=== PATIENT | male | born 1985 | race Caucasian/White ===

== ENCOUNTER 2022-05-14 10:05 | Emergency (ER) | payer OTHER, SELFPAY ==
[2022-05-14 10:10] VITALS: BP 118/85; PULSE 98; RESP 24; TEMP 36.5; O2SAT 97; BMI 38.9
--- NOTE | 2022-05-14 10:12 | EXP.UTC ---
Discharge Plan Disposition Patient Disposition: Home, Self-Care Condition: Good Prescriptions Prescriptions: New methylprednisolone 4 mg Tablets,Dose Pack 4 mg PO DIRECTED Qty: 21 0RF azithromycin [Zithromax] 250 mg tablet 250 mg PO UD DOSE PK Qty: 6 0RF Rx Instructions: Take two (2) tablets today, then one (1) tablet days #2 thru #5 benzonatate [benzonatate] 100 mg capsule 100 mg PO TIDP PRN (Reason: Cough) Qty: 30 0RF No Action cetirizine 10 MG capsule 10 mg PO DAILY ketorolac 10 MG tablet 10 mg PO Q6H 5 Days Qty: 10 0RF Referrals Follow up/Referrals: Provider,Referral, MD [Primary Care Provider] - See instructions Activity Restrictions/Add. Instructions Additional Instructions/Restrictions: Drink plenty of fluids. Take tylenol or ibuprofen for pain or fever. Take the medications as directed. Follow up with your regular doctor. GO TO THE ER FOR ANY WORSENING SYMPTOMS Clinical Impressions Clinical Impression: Sinusitis, Pharyngitis Stand Alone Forms Stand Alone Forms: Work/School Release Instructions Patient Instructions: Sinusitis, DI for Sinusitis Discharge ED Provider: Aneesh Lopez [facility] General Stated complaint: Loss appetite bodyaches congestion drainage Time Seen by Provider: 05/14/22 10:06 History of Present Illness Provider Complaint: He states that for the past 3 days he has had sinus congestion and a sore throat. Related Data Home Medications Medication Instructions Recorded Confirmed cetirizine 10 mg capsule 10 mg PO DAILY Allergy symptoms 04/08/19 04/08/19 Previous Rx's Medication Instructions Recorded ketorolac 10 mg tablet 10 mg PO Q6H 5 days #10 tabs 04/08/19 azithromycin 250 mg tablet 250 mg PO UD DOSE PK #6 tabs 05/14/22 (Zithromax) benzonatate 100 mg capsule 100 mg PO TIDP PRN Cough #30 caps 05/14/22 methylprednisolone 4 mg tablets in 4 mg PO DIRECTED #21 tabs 05/14/22 a dose pack Allergies Allergy/AdvReac Type Severity Reaction Status Date / Time amoxicillin [From AMOXIL] Allergy Mild VOMITING Verified 01/10/19 14:42 [facility] Disclaimer: The information contained in this section may have been updated after the patient was seen, as this information can be updated by other users. Social History Smoking Status: Current every day smoker tobacco type: cigarettes packs per day: 1 alcohol intake: never substance use type: denies use current occupational status: employed Travel in the last 8 weeks: None household members: spouse housing: house ROS Obtained: Yes All systems reviewed & no additional complaints except as documented Constitutional Constitutional: Reports chills and Reports fever(s) Eyes Eyes: Denies eye discharge ENT Ears, Nose, Mouth, and Throat: Reports as per HPI Cardiovascular Cardiovascular: Denies chest pain Respiratory Respiratory: Denies chest congestion and Reports cough Gastrointestinal Gastrointestingal: Reports nausea; Denies abdominal pain, constipation, cramping, diarrhea or vomiting Musculoskeletal Musculoskeletal: Denies arthralgias Integumentary/Breasts Skin/Breast: Denies rash Neurologic Neurologic: Denies paresthesias Physical Exam General General appearance: alert and in no apparent distress Eye Eye exam: Present normal appearance, PERRL and EOMI ENT ENT exam: Present mucous membranes moist and normal external ear exam Expanded ENT Exam External ear exam: Present normal external inspection TM/Canal exam: Bilateral TM: erythema and bulging Nose exam: Absent sinus tenderness Nasal speculum exam: Bilateral: normal Mouth exam: Present normal external inspection; Absent drooling Teeth exam: Present normal inspection Throat exam: Present tonsillar erythema and tonsillomegaly Neck Neck exam: Present normal inspection, full ROM and trachea midline; Absent tenderness, lymphadenopathy or thyromega
[2022-05-14 11:03] VITALS: BP 118/85; PULSE 98; RESP 24; TEMP 36.5; O2SAT 97
== END 2022-05-14 11:06 | disposition home or self-care (01) ==
PROVIDERS: Emergency Provider Nurse Practitioner Family
DX: J32.9 Chronic sinusitis, unspecified (principal); J02.9 Acute pharyngitis, unspecified
CPT/HCPCS: 99212; 99213; G0463

== ENCOUNTER 2023-01-15 14:33 | Emergency (ER) | payer OTHER, SELFPAY ==
[2023-01-15 14:40] VITALS: BP 184/95; PULSE 98; RESP 18; TEMP 36.8; O2SAT 95; BMI 40.8
[2023-01-15 15:06] LABS: UTC Influenza A Antigen Negative (Negative); UTC Influenza B Antigen Negative (Negative)
--- NOTE | 2023-01-15 15:22 | EXP.UTC ---
Discharge Plan Disposition Patient Disposition: Home, Self-Care Condition: Good Prescriptions Prescriptions: New azithromycin [azithromycin] 250 mg tablet 250 mg PO DIRECTED Qty: 6 0RF Rx Instructions: Take two (2) tablets on day #1, then one (1) tablet day #2 thru #5 fluticasone propionate [fluticasone propionate] 50 mcg/actuation spray,suspension 1 spray intranasal DAILY Qty: 9.9 0RF No Action cetirizine 10 MG capsule 10 mg PO DAILY Referrals Follow up/Referrals: Provider,Referral, MD [Primary Care Provider] - See instructions Activity Restrictions/Add. Instructions Additional Instructions/Restrictions: Start antibiotic patient to take as ordered for a full length of time even if you feel better. Sinus infections do not get better overnight. It may take 2-3 days to notice much improvement so be sure to use conservative measures as discussed for symptoms. Flonase 1 spray each nostril daily to help with nasal congestion, sinus and ear pressure/information Increase fluids Humidifier/vaporizer as needed Tylenol and ibuprofen as needed for fever or pain. If symptoms do not improve or get worse return or be seen in the ER Follow-up with primary care this week Clinical Impressions Clinical Impression: Sinusitis Qualifiers: Sinusitis location: maxillary Chronicity: acute Recurrence: non-recurrent Qualified Code(s): J01.00 - Acute maxillary sinusitis, unspecified Instructions Patient Instructions: DI for Sinusitis Discharge ED Provider: Blayne ([facility])Fabiano [facility] [place] General Stated complaint: congestion, h/a Mode of Arrival: Ambulatory Source of Information: Patient Limitations: No Limitations Time Seen by Provider: 01/15/23 15:22 Description of Symptoms (Recalled from Triage Doc. by RN): sore throat, sinus pain and pressure, cough, ko HEENT Symptoms (Recalled from RN notes): Yes Resp Symptoms (Recalled from RN notes): No Skin Symptoms (Recalled from RN notes): No MS Symptoms (Recalled from RN notes): No Functional Status (Recalled from RN notes): n/a History of Present Illness Provider Complaint: 37 yr old male presents for sore throat, cough, pain behind eyes,sinus pressure and sinus pain since thurs Related Data Home Medications Medication Instructions Recorded Confirmed cetirizine 10 mg capsule 10 mg PO DAILY Allergy symptoms 04/08/19 04/08/19 Previous Rx's Medication Instructions Recorded azithromycin 250 mg tablet 250 mg PO DIRECTED #6 tabs 01/15/23 fluticasone propionate 50 1 spray intranasal DAILY #9.9 mL 01/15/23 mcg/actuation nasal spray,suspension Allergies Allergy/AdvReac Type Severity Reaction Status Date / Time amoxicillin [From AMOXIL] Allergy Mild VOMITING Verified 01/15/23 14:53 Worker's Comp Is this a Worker's Comp case?: No PFSH PFS Disclaimer: The information contained in this section may have been updated after the patient was seen, as this information can be updated by other users. Social History , [employer]) Smoking Status: Current every day smoker tobacco type: cigarettes packs per day: 1 alcohol intake: never substance use type: denies use current occupational status: employed Travel in the last 8 weeks: None household members: spouse housing: house ROS Obtained: Yes All systems reviewed & no additional complaints except as documented Constitutional Constitutional: Reports system reviewed and no additional complaints, except as documented, Reports as per HPI, Reports fever(s) and Reports headache(s) Eyes Eyes: Reports system reviewed and no additional complaints, except as documented, Reports as per HPI and Reports eye pain ENT Ears, Nose, Mouth, and Throat: Reports system reviewed and no additional complaints, except as documented, Reports as per HPI, Reports headache(s), Reports nasal congestion, Reports nasal discharge, Reports post nasal drip, Reports sinus pain
[2023-01-15 15:30] VITALS: BP 184/95; PULSE 98; RESP 18; TEMP 36.8; O2SAT 95
== END 2023-01-15 15:30 | disposition home or self-care (01) ==
PROVIDERS: Emergency Provider Nurse Practitioner Family
DX: J01.00 Acute maxillary sinusitis, unspecified (principal); F17.210 Nicotine dependence, cigarettes, uncomplicated; R07.0 Pain in throat; R51.9 Headache, unspecified; R05.9 Cough, unspecified
CPT/HCPCS: 87635; 87804; 99212; 99214; G0463

== ENCOUNTER 2023-04-01 19:27 | Emergency (ER) | payer OTHER, SELFPAY ==
--- NOTE | 2023-04-01 19:32 | ED_ITS ---
Discharge Plan Disposition Patient Disposition: Home, Self-Care Condition: Good Referrals Follow up/Referrals: Maulik Brunson DO [Staff Physician] - See instructions Provider,Referral, [Primary Care Provider] - See instructions Activity Restrictions/Add. Instructions Additional Instructions/Restrictions: Official radiology report pending - wear sling until this is complete Elbow fractures are sometimes still easy to miss early on - followup if not improving Clinical Impressions Clinical Impression: Pain and swelling of right elbow Instructions Patient Instructions: DI for Elbow Pain Discharge ED Provider: Suzy Boyd [facility] [place] HPI General Stated complaint: AO [id number] @ 16:30, rt upper arm inj Time Seen by Provider: 04/01/23 19:45 History of Present Illness Provider Complaint: Patient was working a few hours ago, pulling to start a g enerator, and struck his elbow/upper arm against the cattle trailer. Pain and swelling in elbow. Feels better slightly bent and against body. Onset (ago): hour(s) (3) Location: right and upper extremity Relieving factors: immobilization Exacerbating factors: movement Treatments prior to arrival: none Related Data Allergies Allergy/AdvReac Type Severity Reaction Status Date / Time amoxicillin [From AMOXIL] Allergy Mild VOMITING Verified 01/15/23 14:[address] [facility] Disclaimer: The information contained in this section may have been updated after the patient was seen, as this information can be updated by other users. Social History , [employer]) Smoking Status: Current every day smoker tobacco type: cigarettes packs per day: 1 alcohol intake: never substance use type: denies use current occupational status: employed Travel in the last 8 weeks: None household members: spouse housing: house ROS Obtained: Yes All systems reviewed & no additional complaints except as documented Constitutional Constitutional: Reports system reviewed and no additional complaints, except as documented and Reports as per HPI Eyes Eyes: Reports system reviewed and no additional complaints, except as documented and Reports as per HPI ENT Ears, Nose, Mouth, and Throat: Reports system reviewed and no additional complaints, except as documented and Reports as per HPI Cardiovascular Cardiovascular: Reports system reviewed and no additional complaints, except as documented and Reports as per HPI Respiratory Respiratory: Reports system reviewed and no additional complaints, except as documented Gastrointestinal Gastrointestingal: Reports system reviewed and no additional complaints, except as documented Musculoskeletal Musculoskeletal: Reports as per HPI, Reports arthralgias, Reports joint swelling and Reports limited range of motion Neurologic Neurologic: Reports system reviewed and no additional complaints, except as documented Endocrine Endocrine: Reports system reviewed and no additional complaints, except as documented Allergic/Immunologic Allergic/Immunologic: Reports system reviewed and no additional complaints, except as documented Physical Exam General General appearance: alert and in no apparent distress Respiratory Respiratory exam: Present normal lung sounds bilaterally; Absent respiratory distress Cardiovascular Cardiovascular exam: Present regular rate and normal rhythm; Absent JVD Extremities Exam Extremities exam: Present normal inspection, full ROM and normal capillary refill; Absent calf tenderness Expanded Upper Extremity Exam Right: Arm exam: Present normal inspection Elbow exam: Present tenderness (olecranon process) and swelling; Absent full ROM Back Exam Back exam: Present normal inspection; Absent tenderness Neurological Exam Neurological exam: Present alert and oriented X3 Psychiatric Psychiatric exam: Present normal affect and normal mood Skin Skin exam: Present warm, dry, intact and normal color Lymphatic Lymphatic Findings: no adenopathy Medical Decision Making Christopher Inquiry Pt receiving controlled substance: No Radiology Data #1: Image(s): Humerus and Elbow Image Reviewed: Yes I reviewed the patient's radiology image Preliminary Findings: No Fracture Seen
[2023-04-01 19:40] VITALS: BP 148/90; PULSE 81; RESP 16; TEMP 36.8; O2SAT 98; BMI 39.5
--- NOTE | 2023-04-01 19:41 | XR_ITS ---
PROCEDURE INFORMATION: Exam: XR Right Humerus Exam date and time: 04/01/2023 7:37 PM Age: 37 years old Clinical indication: Injury or trauma; Other: Hit on trailer hitch; Blunt trauma (contusions or hematomas); Arm, upper; Right; Additional info: Hit it on gooseneck trailer TECHNIQUE: Imaging protocol: Radiologic exam of the right humerus. Views: 2 or more views. COMPARISON: No relevant prior studies available. FINDINGS: Bones/joints: The osseous structures appear intact with no evidence of acute fracture, dislocation, or malalignment. Joint spaces are preserved. No abnormal bone density or destructive lesions are noted. Soft tissues: Soft tissues appear unremarkable. IMPRESSION: At the time of imaging, there is no evidence for acute osseous abnormalities. Clinical correlation is advised for comprehensive assessment.
[2023-04-01 19:52] VITALS: BP 148/90; PULSE 81; RESP 16; TEMP 36.8; O2SAT 98
--- NOTE | 2023-04-01 20:05 | XR_ITS ---
PROCEDURE INFORMATION: Exam: XR Right Elbow Exam date and time: 04/01/2023 8:00 PM Age: 37 years old Clinical indication: Patient HX: Hit on hitch, right elbow pain TECHNIQUE: Imaging protocol: Radiologic exam of the right elbow. Views: 3 or more views. COMPARISON: CR Humerus R 04/01/2023 7:37 PM FINDINGS: Bones/joints: Normal. Soft tissues: Normal. IMPRESSION: No acute findings.
== END 2023-04-01 20:23 | disposition home or self-care (01) ==
PROVIDERS: Emergency Provider Physician Assistant
DX: M25.521 Pain in right elbow (principal); R22.41 Localized swelling, mass and lump, right lower limb; F17.210 Nicotine dependence, cigarettes, uncomplicated; W22.8XXA Striking against or struck by other objects, initial encounter
CPT/HCPCS: 73060; 73080; 99212; 99214; G0463

== ENCOUNTER 2023-06-29 13:47 | Emergency (ER) | payer OTHER, SELFPAY ==
[2023-06-29 14:25] VITALS: BP 121/80; PULSE 98; RESP 17; TEMP 36.7; O2SAT 98; BMI 38.5
--- NOTE | 2023-06-29 14:36 | ED_ITS ---
Discharge Plan Disposition Patient Disposition: Home, Self-Care Condition: Good Prescriptions Prescriptions: New ondansetron 4 mg tablet,disintegrating 4 mg PO Q8H PRN (Reason: nausea and vomiting) Qty: 10 0RF Referrals Follow up/Referrals: Provider,Referral, MD [Primary Care Provider] - See instructions Activity Restrictions/Add. Instructions Additional Instructions/Restrictions: *Monitor Temp, Over the counter Motrin or Tylenol as directed/as needed Tylenol every 4 hours and Motrin every 6 hours (as long as your family doctor has told you that you can take it) for fever or pain. and straight to ER if unable to lower temp less than 101.0 after medication given *Warm salt water gargles may help to soothe the throat *Throat Lozenges? *Warm fluids like tea with honey may help to soothe the throat? *Sleep elevated *Humidifier/Vaporizer Follow up IMMEDIATELY for new or worsening symptoms or no Noticeable improvement over the next 48-72 hours. 911 for difficulty breathing or swallowing Clinical Impressions Clinical Impression: Viral syndrome Stand Alone Forms Stand Alone Forms: Work/School Release Instructions Patient Instructions: DI for Viral Syndrome Discharge ED Provider: Marjan Isaacs [facility] General Stated complaint: body aches, headache, cough, loss of appetite Mode of Arrival: Ambulatory Source of Information: Patient Limitations: No Limitations Time Seen by Provider: 06/29/23 14:37 Description of Symptoms (Recalled from Triage Doc. by RN): PATIENT C/O BODY ACHES, CHILLS, AND HEADACHE SINCE TUESDAY HEENT Symptoms (Recalled from RN notes): Yes Resp Symptoms (Recalled from RN notes): No Skin Symptoms (Recalled from RN notes): No MS Symptoms (Recalled from RN notes): No Functional Status (Recalled from RN notes): WNL History of Present Illness Provider Complaint: Patient states that he started feeling bad on Tuesday with body aches, chills, fever and nausea states that he has been laying around and today he isnt feeling any better so he came in to get checked not sure if he may have something that is going around Related Data Previous Rx's Medication Instructions Recorded ondansetron 4 mg disintegrating 4 mg PO Q8H PRN nausea and 06/29/23 tablet vomiting #10 tabs Allergies Allergy/AdvReac Type Severity Reaction Status Date / Time amoxicillin [From AMOXIL] Allergy Mild VOMITING Verified 01/15/23 14:53 Penicillins Allergy Verified 06/29/23 14:34 Worker's Comp Is this a Worker's Comp case?: No [facility] Disclaimer: The information contained in this section may have been updated after the patient was seen, as this information can be updated by other users. 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[employer]) Smoking Status: Current every day smoker tobacco type: cigarettes packs per day: 1 alcohol intake: never substance use type: denies use current occupational status: employed Travel in the last 8 weeks: None household members: spouse housing: house ROS Obtained: Yes All systems reviewed & no additional complaints except as documented and Yes Systems reviewed as appropriate & no additional complaints except as documented Constitutional Constitutional: Reports system reviewed and no additional complaints, except as documented, Reports as per HPI, Reports body ache, Reports chills and Reports headache(s) ENT Ears, Nose, Mouth, and Throat: Reports system reviewed and no additional complaints, except as documented, Reports as per HPI, Reports headache(s) and Reports nasal congestion Cardiovascular Cardiovascular: Reports system reviewed and no additional complaints, except as documented and Reports as per HPI Respiratory Respiratory: Reports system reviewed and no additional complaints, except as documented and Reports as per HPI Gastrointestinal Gastrointestingal: Reports system reviewed and no additional complaints, except as documented and as per HPI Musculoskeletal Musculoskeletal: Reports system reviewed and no additional complaints, except as documented and Reports as per HPI Neurologic Neurologic: Reports headache(s) Physical Exam General General appearance: alert and in no apparent distress ENT ENT exam: Present mucous membranes moist Expanded ENT Exam Nose exam: Absent sinus tenderness Respiratory Respiratory exam: Present normal lung sounds bilaterally; Absent respiratory distress or wheezes Cardiovascular Cardiovascular exam: Present regular rate, normal rhythm and normal heart sounds Abdominal Exam Abdominal exam: Present soft and normal bowel sounds; Absent distention or tenderness Neurological Exam Neurological exam: Present alert, oriented X3 and normal gait Medical Decision Making Christopher Inquiry Pt receiving controlled substance: No Christopher was queried for this patient: No Vital Signs: 06/29/23 14:25 Temperature 98.1 F Temperature Source Oral Pulse Rate [Left Brachial] 98 H Respiratory Rate 17 Blood Pressure [Left Arm] 121/80 Blood Pressure Mean [Left Arm] 93 Blood Pressure Source [Left Arm] Automatic Cuff Blood Pressure Position [Left Arm] Sitting 02 Sat by Pulse Oximetry 98 Oxygen Delivery Method Room Air Lab Data Lab results reviewed: Yes I reviewed the patient's lab results.
[2023-06-29 14:52] LABS: UTC Influenza A Antigen Negative (Negative); UTC Influenza B Antigen Negative (Negative)
[2023-06-29 14:59] VITALS: BP 121/80; PULSE 98; RESP 17; TEMP 36.7; O2SAT 98
== END 2023-06-29 15:02 | disposition home or self-care (01) ==
PROVIDERS: Emergency Provider Nurse Practitioner
DX: R11.0 Nausea (principal); R50.9 Fever, unspecified; B34.9 Viral infection, unspecified; F17.210 Nicotine dependence, cigarettes, uncomplicated
CPT/HCPCS: 87804; 99212; 99214; G0463

== ENCOUNTER 2023-12-14 06:37 | Emergency (ER) | payer OTHER, SELFPAY ==
[2023-12-14 06:46] VITALS: BP 151/96; PULSE 84; RESP 18; TEMP 36.6; O2SAT 98; BMI 39.5
--- NOTE | 2023-12-14 06:54 | PC.NURSE ---
Harman exam performed Both 20/40 Left eye 20/40 Right eye 20/50
--- NOTE | 2023-12-14 07:06 | HMH.EDGENADL ---
Discharge Plan Disposition Patient Disposition: Home, Self-Care Prescriptions Prescriptions: No Action ondansetron 4 mg tablet,disintegrating 4 mg PO Q8H PRN (Reason: nausea and vomiting) Qty: 10 0RF Referrals Follow up/Referrals: Provider,Referral, MD [Primary Care Provider] - See instructions Activity Restrictions/Add. Instructions Additional Instructions/Restrictions: At this time it was felt you are safe to be discharged home. If new or worsening symptoms please do not hesitate to return the emergency department. Please apply your erythromycin ointment 0.5 cm strip on your inferior eyelid as shown 3 times a day for the next 5 days. Clinical Impressions Clinical Impression: Abrasion, corneal Print Language Print Language: Armenian Discharge ED Provider: Vadim Cardona General Adult HPI General Chief complaint: Eye Problems Stated complaint: swollen, redness, pain R eye Time Seen by Provider: 12/14/23 06:50 Mode of Arrival: Ambulatory Source of Information: Patient Limitations: No Limitations Description of Symptoms (Recalled from ER Triage Doc. by RN): Pt reports to ED with cc of right eye pain. Pt states waking up with right eye pain, swelling, and blurry vision. Pt also states difficulty opening eye. Pt has reddness in the right eye. Pt describes the eye as feeling stratchy. History of Present Illness HPI narrative: Patient is a 38-year-old male who presents emergency department for evaluation of right eye pain. He awoke with a red scratchy eye with limited ability to open it. Denies trauma, does not weld, no angle grinding, does not wear contacts. He does have some corrective vision with glasses in certain situations at baseline. No other acute complaints at this time. Related Data Previous Rx's ?Medication ?Instructions ?Recorded ondansetron 4 mg disintegrating 4 mg PO Q8H PRN nausea and 06/29/23 tablet vomiting #10 tabs Allergies Allergy/AdvReac Type Severity Reaction Status Date / Time amoxicillin [From AMOXIL] Allergy Mild VOMITING Verified 01/15/23 14:53 Penicillins Allergy Verified 06/29/23 14:34 [facility] Disclaimer: The information contained in this section may have been updated after the patient was seen, as this information can be updated by other users. Surgical History (Updated 06/29/23 @ 14:35 by Evelyne Maurice RN) History of tonsillectomy Social History , [employer]) Smoking Status: Never smoker alcohol intake: never substance use type: denies use current occupational status: employed Travel in the last 8 weeks: None household members: spouse housing: house Other Medical History Have you received the Flu Vaccine for this season: Yes Have you received the Pneumonia Vaccine: No ROS Obtained: Yes Systems reviewed as appropriate & no additional complaints except as documented Physical Exam General General appearance: alert and in no apparent distress Head Head exam: atraumatic and normocephalic Eye Eye exam: Present PERRL, EOMI, conjunctival redness (Diffuse conjunctival redness right greater than left) and other (No exophthalmos, no periorbital erythema) ENT ENT exam: Present mucous membranes moist Neck Neck exam: Present normal inspection Chest Chest inspection: Present normal inspection and symmetric chest wall rise Respiratory Respiratory exam: Absent respiratory distress Cardiovascular Cardiovascular exam: Present regular rate and normal rhythm Extremities Exam Extremities exam: Present normal inspection Neurological Exam Neurological exam: Present alert and CN II-XII intact Psychiatric Psychiatric exam: Present normal affect Skin Skin exam: Present warm and dry Medical Decision Making Medical Records Screening: Per USPSTF and CDC recommendations, given the prevalence of disease in our region, it is our hospital?s policy to screen for HIV and viral Hepatitis for all patients aged 18 and over and those with ongoing risk factors. Christopher Inquiry Pt receiving controlled substance: No Vital Signs: 12/14/23 06:46 Temperature 97.9 F Temperature Source Oral Pulse Rate [Left Radial] 84 Respiratory Rate 18 Blood Pressure [Right Arm] 151/96 H Blood Pressure Mean [Right Arm] 114 Blood Pressure Source [Right Arm] Automatic Cuff Blood Pressure Position [Right Arm] Sitting 02 Sat by Pulse Oximetry 98 Oxygen Delivery Method Room Air Medical Decision Narrative: In summary patient is a 38-year-old male past medical history described above presents emergency department for evaluation of right eye pain. Patient is hemodynamically stable nontoxic-appearing upon arrival. He lamp exam shows corneal abrasion that is punctate, Annamarie sign negative, no foreign body identified. Erythromycin ointment was instilled into the right eye and patient is appropriate for outpatient management at this time was given multiple return precautions verbalized understanding. Procedure: Procedure performed was Will's exam. Procedure performed by Vadim Cardona. Topical tetracaine was applied to the right eye with partial effect. He lamp was used and identified punctate corneal abrasion. Erythromycin ointment was instilled into the inferior lid. No other fluorescein uptake, no foreign body identified. Patient tolerated the procedure well. Critical Care Critical Care Time Critical Care Time: No
[2023-12-14] MEDS: TETRACAINE 0.5% OPTH SOL 15ML OP (07:12)
[2023-12-14] MEDS: FLUORESCEIN SODIUM 1MG STRIP 1 MG OP (07:12)
[2023-12-14] MEDS: ERYTHROMYCIN BASE 1 GM OINT...G. 0.5 GM OP (07:13)
[2023-12-14 07:17] VITALS: BP 159/94; PULSE 97; RESP 18; TEMP 36.7; O2SAT 98
== END 2023-12-14 07:18 | disposition home or self-care (01) ==
PROVIDERS: Emergency Provider Emergency Medicine
DX: S05.00XA Injury of conjunctiva and corneal abrasion without foreign body, unspecified eye, initial encounter (principal); X58.XXXA Exposure to other specified factors, initial encounter
CPT/HCPCS: 99283

== ENCOUNTER 2024-05-11 18:58 | Emergency (ER) | payer OTHER, SELFPAY ==
[2024-05-11 19:06] VITALS: BP 131/83; PULSE 93; RESP 18; TEMP 36.8; O2SAT 99; BMI 27.7
[2024-05-11 19:14] LABS: Coronavirus 19, PCR Not Detected (NotDetected); Influenza B, PCR Not Detected (NotDetected)
[2024-05-11 19:17] VITALS: RESP 18; O2SAT 98
[2024-05-11 19:38] LABS: Influenza A, PCR Detected (NotDetected)
--- NOTE | 2024-05-11 19:39 | XR_ITS ---
PROCEDURE INFORMATION: Exam: XR Chest Exam date and time: 05/11/2024 7:53 PM Age: 38 years old Clinical indication: Wheezing; Additional info: Lll wheezing posteriorly TECHNIQUE: Imaging protocol: Radiologic exam of the chest. Views: 1 view. COMPARISON: CR XR HUMERUS RT 04/01/2023 7:37 PM FINDINGS: Lungs: Unremarkable. No consolidation. Pleural spaces: Unremarkable. No pleural effusion. No pneumothorax. Heart/Mediastinum: Unremarkable. No cardiomegaly. Bones/joints: Unremarkable. IMPRESSION: No acute findings.
--- NOTE | 2024-05-11 19:41 | ED_ITS ---
Discharge Plan Disposition Patient Disposition: Home, Self-Care Chief Complaint: Upper Respiratory Infection Prescriptions Prescriptions: No Action No Known Home Medications Referrals Follow up/Referrals: Provider,Referral, MD [Primary Care Provider] - See instructions Activity Restrictions/Add. Instructions Additional Instructions/Restrictions: Call your family doctor to establish care for this visit to the emergency department and schedule follow-up within 48 hours to ensure improvement. If you have any worsening of your condition or any other concerning signs or symptoms, return to the emergency department or your primary care doctor for further evaluation. Take Tylenol 1000 mg every 6 hours (4 times daily) and ibuprofen 400 mg every 6 hours (4 times daily) as needed with food and water to prevent GI upset and kidney damage. Clinical Impressions Clinical Impression: Influenza A Print Language Print Language: [place] Discharge ED Provider: Wojciech Pepe General Adult HPI General Chief complaint: Upper Respiratory Infection Stated complaint: cough, vomiting, weak, diane Time Seen by Provider: 05/11/24 19:14 Mode of Arrival: Ambulatory Source of Information: Patient Limitations: No Limitations Description of Symptoms (Recalled from ER Triage Doc. by RN): Pt presents for evaluation of congestion, fever, cough and fatigue x 2 days. highest temp at home was 100 something . Pt states he took ibuprofen at 1400 today. History of Present Illness HPI narrative: Please note that above description of symptoms, in this electronic medical record under categorization of recalled from ER triage doctor by RN are reflective of an initial nursing assessment, however, is not reflective of my full history and physical exam that was personally taken and clarified. Consequentially, this preceding description of symptoms, which may include the patient's categorized chief complaint in the EMR, do not reflect my personal clinical impression, and the ultimate description of history of present illness and patient stated complaints should be deferred to this section of the note. Unless stated otherwise or congruent with this section of the note, additional signs, symptoms, or incongruence should be interpreted as inaccurate with my clinical impression. Related Data Home Medications ?Medication ?Instructions ?Recorded ?Confirmed No Known Home Medications 05/11/24 05/11/24 Allergies Allergy/AdvReac Type Severity Reaction Status Date / Time amoxicillin (From AMOXIL) Allergy Mild VOMITING Verified 01/15/23 14:53 Penicillins Allergy Vomiting Verified 05/11/24 19:09 [facility] Disclaimer: The information contained in this section may have been updated after the patient was seen, as this information can be updated by other users. Surgical History History of tonsillectomy Social History Smoking Status: Former smoker tobacco type: cigarettes packs per day: 1 alcohol intake: never substance use type: denies use current occupational status: employed Travel in the last 8 weeks: None household members: spouse housing: house Have you lived/traveled outside [place] in past 30 days?: No Contact w/someone who lives/traveled outside [place] past 30 days?: No Exposure to someone with infectious disease in past 14 days?: No Do you have a fever (greater than 100.4 F or 38 C)?: No Have you tested positive for COVID-19: No Exposed to someone with COVID-19 in past 14 days?: No Do you have a sore throat?: No Do you have a cough?: No Do you have any weakness?: No Do you have any diarrhea?: No Are you experiencing any unusual bleeding?: No Do you have any muscle aches/pain?: No Do you have any abdominal pain?: No Are you experiencing loss of taste or smell?: No Other Medical History Have you received the Flu Vaccine for this season: Yes Have you received the Pneumonia Vaccine: No ROS Obtained: Yes All systems reviewed & no additional complaints except as documented Physical Exam General General appearance: alert Head Head exam: atraumatic and normocephalic Eye Eye exam: Present normal appearance, PERRL and EOMI Neck Neck exam: Present normal inspection, full ROM and trachea midline Respiratory Respiratory exam: Present other (Left lower lung field rhonchi posteriorly); Absent respiratory distress, wheezes, stridor, accessory muscle use or prolonged expiratory phase Cardiovascular Cardiovascular exam: Present other (Pulses equal symmetric in upper and lower extremities) Abdominal Exam Abdominal exam: Present soft; Absent distention, tenderness or pulsatile mass Extremities Exam Extremities exam: Absent edema Neurological Exam Neurological exam: Present alert, oriented X3 and CN II-XII intact; Absent motor sensory deficit Skin Skin exam: Present warm and dry; Absent diaphoresis or erythema Medical Decision Making Medical Records Medical records reviewed: Yes I reviewed the patient's medical records. Screening: Per USPSTF and CDC recommendations, given the prevalence of disease in our region, it is our hospital?s policy to screen for HIV and viral Hepatitis for all patients aged 18 and over and those with ongoing risk factors. Christopher Inquiry Pt receiving controlled substance: No Christopher was queried for this patient: No Vital Signs: 05/11/24 19:06 05/11/24 19:17 Temperature 98.3 F Temperature Source Oral Pulse Rate [Right] 93 H Respiratory Rate 18 18 Blood Pressure [Right Arm] 131/83 Blood Pressure Mean [Right Arm] 99 Blood Pressure Source [Right Arm] Automatic Cuff Blood Pressure Position [Right Arm] Sitting 02 Sat by Pulse Oximetry 99 98 Oxygen Delivery Method Room Air Room Air Lab Data Lab Results 05/11/24 19:06: SARS-CoV-2 (PCR) Not detected, Influenza A Untype (PCR) Detected A, Influenza Type B (PCR) Not detected Orders (Tests/Meds): ED MEDICATIONS Discontinued Medications Generic Name Dose Route Start Last Admin Trade Name Freq PRN Reason Stop Dose Admin Dexamethasone 10 mg 05/11/24 19:39 05/11/24 19:44 Dexamethasone 4mg Tablet PO 05/11/24 19:40 10 mg ONCE ONE Administration ORDERS Category Date Time Status CXR --portable [XR chest portable] Stat Exams 05/11/24 19:39 Completed Rapid PCR Covid and Flu A/B Stat Lab 05/11/24 19:06 Completed Medical Decision Narrative: 38-year-old male no relevant medical history presenting with cough, generalized weakness, congestion. States this has been going on 2 or 3 days getting worse. Cough is productive of thick white sputum. Intermittent vomiting, soft stools, but no overt diarrhea. Fever just before arrival of just over 100. History obtained with patient. On arrival, very clinically well-appearing. Normotensive, nontachycardic. Lungs are clear with the exception of rhonchi and left lower lung zaldivar posteriorly. Viral swab obtained, chest x-ray to be obtained. On independent interpretation, patient influenza positive. Independent interpretation of imaging demonstrates no acute cardiopulmonary or airspace disease. Because patient at baseline without signs or symptoms of c linical decompensation, deemed appropriate for discharge. Results were relayed to patient who voiced understanding and were agreeable to outpatient management and follow up. I discussed my clinical impression with patient and answered all questions. At this time, the evidence for any other entities in the differential is insufficient to warrant any further testing or ED observation. This was explained as well. Advisory was given that persistent or worsening symptoms require further evaluation. I confirmed the understanding of this discussion. Director Dance disclaimer Much of this encounter note is an electronic container shop welder spoken language to printed text. Electronic container shop welder of the spoken language may permit errors. Although I have reviewed the note, some errors may still exist. Critical Care Critical Care Time Critical Care Time: No
[2024-05-11] MEDS: DEXAMETHASONE 4MG TABLET 10 MG PO (19:44)
[2024-05-11 21:07] VITALS: BP 128/78; PULSE 88; RESP 18; TEMP 36.8; O2SAT 98
== END 2024-05-11 21:07 | disposition home or self-care (01) ==
PROVIDERS: Emergency Provider Emergency Medicine
DX: J10.1 Influenza due to other identified influenza virus with other respiratory manifestations (principal); R50.9 Fever, unspecified; R09.81 Nasal congestion; R05.9 Cough, unspecified; R53.83 Other fatigue; F17.210 Nicotine dependence, cigarettes, uncomplicated
CPT/HCPCS: 71045; 87636; 99283; J8540

== ENCOUNTER 2024-05-17 19:57 | Emergency (ER) | payer OTHER, SELFPAY ==
[2024-05-17] VITALS (9 sets, daily range): BP systolic 122–154; BP diastolic 69–99; PULSE 74–97; RESP 14–22; TEMP 36.6–37.2; O2SAT 94–97; BMI 40.8
--- NOTE | 2024-05-17 19:56 | ECG_ITS ---
APPROVED REPORT Exam: Resting ECG HR:97 bpm ECG Measurements Heart Rate 97 AXES CO 143 P 73 QRSd 97 QRS 72 QT 322 T 40 QTc 376 Conclusion SINUS RHYTHM NORMAL ECG INTERPRETATION BASED ON A DEFAULT AGE OF 42 YEARS UNCONFIRMED REPORT Electronically signed by : EZEQUIEL HAIRSTON, 05/18/2024 05:30:24
--- NOTE | 2024-05-17 20:07 | ED_ITS ---
Discharge Plan Disposition Patient Disposition: Home, Self-Care Prescriptions Prescriptions: New doxycycline hyclate 100 mg capsule 100 mg PO BID 5 Days Qty: 10 0RF Referrals Follow up/Referrals: Provider,Referral, MD [Primary Care Provider] - See instructions Activity Restrictions/Add. Instructions Additional Instructions/Restrictions: Call your family doctor to establish care for this visit to the emergency department and schedule follow-up within 48 hours to ensure improvement. If you have any worsening of your condition or any other concerning signs or symptoms, return to the emergency department or your primary care doctor for further evaluation. Doxycycline twice daily for 5 days Clinical Impressions Clinical Impression: Left lower lobe pneumonia Qualifiers: Pneumonia type: due to unspecified organism Qualified Code(s): J18.9 - Pneumonia, unspecified organism Print Language Print Language: [place] Discharge ED Provider: Ray Gambino Adult HPI <TC Ruano - Last Filed: 05/17/24 21:55> General Chief complaint: Chest Pain Stated complaint: Chest pain Time Seen by Provider: 05/17/24 20:07 Mode of Arrival: Ambulatory Source of Information: Patient Description of Symptoms (Recalled from ER Triage Doc. by RN): Pt presents with left shoulder/chest pain that began approx 2 hours ago. No known cardiac history History of Present Illness HPI narrative: Patient presents for evaluation of chest pain. Patient reports that he had just gotten home and was trying to locate a dog that had gotten loose. He was able to do so and noticed that he was starting having left chest pain that was radiating down his left arm. He also reports paresthesias associated with it. He denies any fever chills hemoptysis hematochezia melena hematemesis but does report that he recently had the flu approximately 2 weeks ago. Related Data Previous Rx's ?Medication ?Instructions ?Recorded doxycycline hyclate 100 mg capsule 100 mg PO BID 5 days #10 caps 05/17/24 Allergies Allergy/AdvReac Type Severity Reaction Status Date / Time amoxicillin (From AMOXIL) Allergy Mild VOMITING Verified 01/15/23 14:53 Penicillins Allergy Vomiting Verified 05/11/24 19:09 PFSH <TC Ruano - Last Filed: 05/17/24 21:55> [facility] Disclaimer: The information contained in this section may have been updated after the patient was seen, as this information can be updated by other users. Surgical History History of tonsillectomy Social History Smoking Status: Former smoker tobacco type: cigarettes packs per day: 1 alcohol intake: never substance use type: denies use current occupational status: employed Travel in the last 8 weeks: None household members: spouse housing: house Have you lived/traveled outside [place] in past 30 days?: No Contact w/someone who lives/traveled outside US past 30 days?: No Exposure to someone with infectious disease in past 14 days?: No Do you have a fever (greater than 100.4 F or 38 C)?: No Have you tested positive for COVID-19: No Exposed to someone with COVID-19 in past 14 days?: No Do you have a sore throat?: No Do you have a cough?: No Do you have any weakness?: No Do you have any diarrhea?: No Are you experiencing any unusual bleeding?: No Do you have any muscle aches/pain?: No Do you have any abdominal pain?: No Are you experiencing loss of taste or smell?: No Other Medical History Have you received the Flu Vaccine for this season: Yes Have you received the Pneumonia Vaccine: No <TC Ruano - Last Filed: 05/17/24 21:55> ROS Obtained: Yes Systems reviewed as appropriate & no additional complaints except as documented Physical Exam <TC Ruano - Last Filed: 05/17/24 21:55> General General appearance: alert and in no apparent distress Respiratory Respiratory exam: Present normal lung sounds bilaterally Cardiovascular Cardiovascular exam: Present regular rate Neurological Exam Neurological exam: Present alert and oriented X3 Medical Decision Making <TC Ruano - Last Filed: 05/17/24 21:55> Medical Records Medical records reviewed: Yes I reviewed the patient's medical records. Screening: Per USPSTF and CDC recommendations, given the prevalence of disease in our region, it is our hospital?s policy to screen for HIV and viral Hepatitis for all patients aged 18 and over and those with ongoing risk factors. Christopher Inquiry Pt receiving controlled substance: No Vital Signs: 05/17/24 20:00 05/17/24 20:04 05/17/24 20:30 Temperature 99 F Temperature Source Oral Pulse Rate 95 H 90 Pulse Rate [Radial] 97 H Respiratory Rate 18 22 19 Blood Pressure 146/83 H 132/79 Blood Pressure [Right Arm] 154/99 H Blood Pressure Mean [Right Arm] 117 Blood Pressure Position [Right Arm] Sitting 02 Sat by Pulse Oximetry 95 97 95 Oxygen Delivery Method Room Air Room Air 05/17/24 21:01 05/17/24 21:30 05/17/24 22:00 Temperature Temperature Source Pulse Rate 91 H 85 86 Pulse Rate [Radial] Respiratory Rate 17 Blood Pressure 122/69 131/77 142/91 H Blood Pressure [Right Arm] Blood Pressure Mean [Right Arm] Blood Pressure Position [Right Arm] 02 Sat by Pulse Oximetry 96 95 95 Oxygen Delivery Method Room Air Room Air 05/17/24 22:31 05/17/24 23:01 Temperature Temperature Source Pulse Rate 84 83 Pulse Rate [Radial] Respiratory Rate 14 Blood Pressure 129/79 133/72 Blood Pressure [Right Arm] Blood Pressure Mean [Right Arm] Blood Pressure Position [Right Arm] 02 Sat by Pulse Oximetry 96 96 Oxygen Delivery Method Room Air Room Air Lab Data Lab results reviewed: Yes I reviewed the patient's lab results. Lab Results 05/17/24 19:50: WBC 14.6 H, RBC 4.58 L, Hgb 14.1, Hct 41.5 L, MCV 90.6, MCH 30.8, MCHC 34.0, RDW 12.7, Plt Count 418, MPV 8.9, Neut % (Auto) 62.6, Lymph % (Auto) 25.9, [place] % (Auto) 8.3, Eos % (Auto) 2.3, Baso % (Auto) 0.3, Neut # (Auto) 9.1 H, Lymph # (Auto) 3.8, [place] # (Auto) 1.2 H, Eos # (Auto) 0.3, Baso # (Auto) 0.1, PT 9.6, INR 0.86 L, D-Dimer 0.32, Sodium 138, Potassium 3.9, Chloride 103, Carbon Dioxide 31 H, Anion Gap 7.9, BUN 13, Creatinine 1.00, Estimated Creat Clear 203, Estimated GFR 85, Est GFR ( Amer) 102, Glucose 111 H, Calcium 9.3, Total Bilirubin 0.4, AST 34, ALT 42, Alkaline Phosphatase 56, Troponin I < 0.01, NT-Pro-B Natriuret Pep < 20.0, Total Protein 7.7, Albumin 4.6, Globulin 3.1, Albumin/Globulin Ratio 1.5, Procalcitonin 0.049 05/17/24 22:25: Troponin I < 0.01 05/17/24 19:50 05/17/24 19:50 Orders (Tests/Meds): ED MEDICATIONS Discontinued Medications Generic Name Dose Route Start Last Admin Trade Name Ayoq PRN Reason Stop Dose Admin Acetaminophen 1,000 mg 05/17/24 20:07 05/17/24 20:24 Acetaminophen 1,000mg/100ml Vial IV 05/17/24 20:08 1,000 mg ONCE ONE Administration Doxycycline Hyclate 100 mg 05/17/24 22:11 05/17/24 22:28 Doxycycline Hycl 100 Mg Tablet PO 05/17/24 22:12 100 mg ONCE ONE Administration Sodium Chloride 1,000 mls @ 999 mls/hr 05/17/24 20:07 05/17/24 20:24 Sod Chlor 0.9% 1000ml Bag IV 05/17/24 21:07 999 mls/hr .Q1H1M ONE Administration Ketorolac Tromethamine 15 mg 05/17/24 20:07 05/17/24 20:24 Ketorolac 30mg/Ml Vial IV 05/17/24 20:08 15 mg ONCE ONE Administration ORDERS Category Date Time Status Chest XR 2 view (NOT portable) [XR chest 2V] Stat Exams 05/17/24 20:08 Taken BNP [NT Pro Brain Natriuretic Pep.] Stat Lab 05/17/24 19:50 Completed CBC w/Auto Diff [Complete Blood Count Auto Diff] Stat Lab 05/17/24 19:50 Completed CMP [Comprehensive Metabolic Panel] Stat Lab 05/17/24 19:50 Completed D-Dimer Stat Lab 05/17/24 19:50 Completed INR [Prothrombin Time INR] Stat Lab 05/17/24 19:50 Completed Procalcitonin Stat Lab 05/17/24 19:50 Completed Trop I [Troponin I] Stat Lab 05/17/24 19:50 Completed Troponin I Q3H Lab 05/17/24 22:25 Completed Troponin I Q3H Lab 05/18/24 02:15 Ordered HEART Score History (anamnesis): Slightly suspicious ECG: Non-specific disturbance Age: <45 years Risk factors: 3 or more risk factors Troponin: </= normal limit HEART Score: 3 Medical Decision Narrative: In summary patient is a 38-year-old male who presents to the emergency department for evaluation of chest pain with left arm radiation. Patient is hemodynamically stable with a blood pressure 159/99 heart rate 97 sinus rhythm on the bedside monitor breathing 22 times a minute satting at 97% on room air upon arrival, with a temperature of 99. Physical exam is remarkable for clear breath sounds with no increased work of breathing or adventitious sounds, heart sounds S1-S2 regular rate and rhythm without murmurs gallops or thrills. Abdomen is soft nontender no rebound or guarding or rigidity. Bowel sounds normal active. No dependent edema noted.. Differential diagnosis includes ACS versus PE versus pneumonia versus gastroenteritis etc. Initial workup will be conducted with hematologic labs D-dimer plain film chest x-ray twelve-lead EKG.. Initial interventions include crystalloid bolus Toradol Tylenol GI cocktail. Initial workup reviewed by me and his hematologic labs are significant for a white count of 14.6 with an absolute neutrophil count of 9.1 D-dimer 0.32 troponin of less than 0.01 and NT proBNP of less than 20. Given this has been having chest pain continuously for only an hour and a half the patient was placed in observation status at 2100 hrs. Medical necessity for observational status is serial troponins. The patient was provided serial reevaluations continuous cardiac monitoring and pulse oximetry while awaiting results. Patient handed off to Dr. Pepe at 2200 hrs. before second troponin done. Total time in observation was [total time]. <Wojciech Pepe MD - Last Filed: 05/17/24 23:17> Vital Signs: 05/17/24 20:00 05/17/24 20:04 05/17/24 20:30 Temperature 99 F Temperature Source Oral Pulse Rate 95 H 90 Pulse Rate [Radial] 97 H Respiratory Rate 18 22 19 Blood Pressure 146/83 H 132/79 Blood Pressure [Right Arm] 154/99 H Blood Pressure Mean [Right Arm] 117 Blood Pressure Position [Right Arm] Sitting 02 Sat by Pulse Oximetry 95 97 95 Oxygen Delivery Method Room Air Room Air 05/17/24 21:01 05/17/24 21:30 05/17/24 22:00 Temperature Temperature Source Pulse Rate 91 H 85 86 Pulse Rate [Radial] Respiratory Rate 17 Blood Pressure 122/69 131/77 142/91 H Blood Pressure [Right Arm] Blood Pressure Mean [Right Arm] Blood Pressure Position [Right Arm] 02 Sat by Pulse Oximetry 96 95 95 Oxygen Delivery Method Room Air Room Air 05/17/24 22:31 05/17/24 23:01 Temperature Temperature Source Pulse Rate 84 83 Pulse Rate [Radial] Respiratory Rate 14 Blood Pressure 129/79 133/72 Blood Pressure [Right Arm] Blood Pressure Mean [Right Arm] Blood Pressure Position [Right Arm] 02 Sat by Pulse Oximetry 96 96 Oxygen Delivery Method Room Air Room Air Lab Data Lab Results 05/17/24 19:50: WBC 14.6 H, RBC 4.58 L, Hgb 14.1, Hct 41.5 L, MCV 90.6, MCH 30.8, MCHC 34.0, RDW 12.7, Plt Count 418, MPV 8.9, Neut % (Auto) 62.6, Lymph % (Auto) 25.9, [place] % (Auto) 8.3, Eos % (Auto) 2.3, Baso % (Auto) 0.3, Neut # (Auto) 9.1 H, Lymph # (Auto) 3.8, [place] # (Auto) 1.2 H, Eos # (Auto) 0.3, Baso # (Auto) 0.1, PT 9.6, INR 0.86 L, D-Dimer 0.32, Sodium 138, Potassium 3.9, Chloride 103, Carbon Dioxide 31 H, Anion Gap 7.9, BUN 13, Creatinine 1.00, Estimated Creat Clear 203, Estimated GFR 85, Est GFR ( Amer) 102, Glucose 111 H, Calcium 9.3, Total Bilirubin 0.4, AST 34, ALT 42, Alkaline Phosphatase 56, Troponin I < 0.01, NT-Pro-B Natriuret Pep < 20.0, Total Protein 7.7, Albumin 4.6, Globulin 3.1, Albumin/Globulin Ratio 1.5, Procalcitonin 0.049 05/17/24 22:25: Troponin I < 0.01 Orders (Tests/Meds): ED MEDICATIONS Discontinued Medications Generic Name Dose Route Start Last Admin Trade Name Freq PRN Reason Stop Dose Admin Acetaminophen 1,000 mg 05/17/24 20:07 05/17/24 20:24 Acetaminophen 1,000mg/100ml Vial IV 05/17/24 20:08 1,000 mg ONCE ONE Administration Doxycycline Hyclate 100 mg 05/17/24 22:11 05/17/24 22:28 Doxycycline Hycl 100 Mg Tablet PO 05/17/24 22:12 100 mg ONCE ONE Administration Sodium Chloride 1,000 mls @ 999 mls/hr 05/17/24 20:07 05/17/24 20:24 Sod Chlor 0.9% 1000ml Bag IV 05/17/24 21:07 999 mls/hr .Q1H1M ONE Administration Ketorolac Tromethamine 15 mg 05/17/24 20:07 05/17/24 20:24 Ketorolac 30mg/Ml Vial IV 05/17/24 20:08 15 mg ONCE ONE Administration ORDERS Category Date Time Status Chest XR 2 view (NOT portable) [XR chest 2V] Stat Exams 05/17/24 20:08 Taken BNP [NT Pro Brain Natriuretic Pep.] Stat Lab 05/17/24 19:50 Completed CBC w/Auto Diff [Complete Blood Count Auto Diff] Stat Lab 05/17/24 19:50 Completed CMP [Comprehensive Metabolic Panel] Stat Lab 05/17/24 19:50 Completed D-Dimer Stat Lab 05/17/24 19:50 Completed INR [Prothrombin Time INR] Stat Lab 05/17/24 19:50 Completed Procalcitonin Stat Lab 05/17/24 19:50 Completed Trop I [Troponin I] Stat Lab 05/17/24 19:50 Completed Troponin I Q3H Lab 05/17/24 22:25 Completed Troponin I Q3H Lab 05/18/24 02:15 Ordered ECG Data Tracing #1: I reviewed this ECG and interpreted as documented below: (Sinus rhythm 97 beats per minute with VA interval 143, QRS 97, QTc 376. Normal axis) HEART Score HEART Score: 3 Medical Decision Narrative: In summary patient is a 38-year-old male who presents to the emergency department for evaluation of chest pain with left arm radiation. Patient is hemodynamically stable with a blood pressure 159/99 heart rate 97 sinus rhythm on the bedside monitor breathing 22 times a minute satting at 97% on room air upon arrival, with a temperature of 99. Physical exam is remarkable for clear breath sounds with no increased work of breathing or adventitious sounds, heart sounds S1-S2 regular rate and rhythm without murmurs gallops or thrills. Abdomen is soft nontender no rebound or guarding or rigidity. Bowel sounds normal active. No dependent edema noted.. Differential diagnosis includes ACS versus PE versus pneumonia versus gastroenteritis etc. Initial workup will be conducted with hematologic labs D-dimer plain film chest x-ray twelve-lead EKG.. Initial interventions include crystalloid bolus Toradol Tylenol GI cocktail. Initial workup reviewed by me and his hematologic labs are significant for a white count of 14.6 with an absolute neutrophil count of 9.1 D-dimer 0.32 troponin of less than 0.01 and NT proBNP of less than 20. Given this has been having chest pain continuously for only an hour and a half the patient was placed in observation status at 2100 hrs. Medical necessity for observational status is serial troponins. The patient was provided serial reevaluations continuous cardiac monitoring and pulse oximetry while awaiting results. Patient handed off to Dr. Pepe at 2200 hrs. before second troponin done. My: I assumed primary responsibility for this patient after signout from RASHEED. Patient stable, mild leukocytosis nonactionable chemistry and negative initial troponin/BNP. Chest x-ray with infiltrate consistent with early pneumonia. Given doxycycline. Prior to delta troponin, care handed off to oncoming physician <Ray Gambino MD - Last Filed: 05/17/24 23:38> Vital Signs: 05/17/24 20:00 05/17/24 20:04 05/17/24 20:30 Temperature 99 F Temperature Source Oral Pulse Rate 95 H 90 Pulse Rate [Radial] 97 H Respiratory Rate 18 22 19 Blood Pressure 146/83 H 132/79 Blood Pressure [Right Arm] 154/99 H Blood Pressure Mean [Right Arm] 117 Blood Pressure Position [Right Arm] Sitting 02 Sat by Pulse Oximetry 95 97 95 Oxygen Delivery Method Room Air Room Air 05/17/24 21:01 05/17/24 21:30 05/17/24 22:00 Temperature Temperature Source Pulse Rate 91 H 85 86 Pulse Rate [Radial] Respiratory Rate 17 Blood Pressure 122/69 131/77 142/91 H Blood Pressure [Right Arm] Blood Pressure Mean [Right Arm] Blood Pressure Position [Right Arm] 02 Sat by Pulse Oximetry 96 95 95 Oxygen Delivery Method Room Air Room Air 05/17/24 22:31 05/17/24 23:01 Temperature Temperature Source Pulse Rate 84 83 Pulse Rate [Radial] Respiratory Rate 14 Blood Pressure 129/79 133/72 Blood Pressure [Right Arm] Blood Pressure Mean [Right Arm] Blood Pressure Position [Right Arm] 02 Sat by Pulse Oximetry 96 96 Oxygen Delivery Method Room Air Room Air Lab Data Lab Results 05/17/24 19:50: WBC 14.6 H, RBC 4.58 L, Hgb 14.1, Hct 41.5 L, MCV 90.6, MCH 30.8, MCHC 34.0, RDW 12.7, Plt Count 418, MPV 8.9, Neut % (Auto) 62.6, Lymph % (Auto) 25.9, [place] % (Auto) 8.3, Eos % (Auto) 2.3, Baso % (Auto) 0.3, Neut # (Auto) 9.1 H, Lymph # (Auto) 3.8, [place] # (Auto) 1.2 H, Eos # (Auto) 0.3, Baso # (Auto) 0.1, PT 9.6, INR 0.86 L, D-Dimer 0.32, Sodium 138, Potassium 3.9, Chloride 103, Carbon Dioxide 31 H, Anion Gap 7.9, BUN 13, Creatinine 1.00, Estimated Creat Clear 203, Estimated GFR 85, Est GFR ( Amer) 102, Glucose 111 H, Calcium 9.3, Total Bilirubin 0.4, AST 34, ALT 42, Alkaline Phosphatase 56, Troponin I < 0.01, NT-Pro-B Natriuret Pep < 20.0, Total Protein 7.7, Albumin 4.6, Globulin 3.1, Albumin/Globulin Ratio 1.5, Procalcitonin 0.049 05/17/24 22:25: Troponin I < 0.01 Orders (Tests/Meds): ED MEDICATIONS Discontinued Medications Generic Name Dose Route Start Last Admin Trade Name Freq PRN Reason Stop Dose Admin Acetaminophen 1,000 mg 05/17/24 20:07 05/17/24 20:24 Acetaminophen 1,000mg/100ml Vial IV 05/17/24 20:08 1,000 mg ONCE ONE Administration Doxycycline Hyclate 100 mg 05/17/24 22:11 05/17/24 22:28 Doxycycline Hycl 100 Mg Tablet PO 05/17/24 22:12 100 mg ONCE ONE Administration Sodium Chloride 1,000 mls @ 999 mls/hr 05/17/24 20:07 05/17/24 20:24 Sod Chlor 0.9% 1000ml Bag IV 05/17/24 21:07 999 mls/hr .Q1H1M ONE Administration Ketorolac Tromethamine 15 mg 05/17/24 20:07 05/17/24 20:24 Ketorolac 30mg/Ml Vial IV 05/17/24 20:08 15 mg ONCE ONE Administration ORDERS Category Date Time Status Chest XR 2 view (NOT portable) [XR chest 2V] Stat Exams 05/17/24 20:08 Taken BNP [NT Pro Brain Natriuretic Pep.] Stat Lab 05/17/24 19:50 Completed CBC w/Auto Diff [Complete Blood Count Auto Diff] Stat Lab 05/17/24 19:50 Completed CMP [Comprehensive Metabolic Panel] Stat Lab 05/17/24 19:50 Completed D-Dimer Stat Lab 05/17/24 19:50 Completed INR [Prothrombin Time INR] Stat Lab 05/17/24 19:50 Completed Procalcitonin Stat Lab 05/17/24 19:50 Completed Trop I [Troponin I] Stat Lab 05/17/24 19:50 Completed Troponin I Q3H Lab 05/17/24 22:25 Completed Troponin I Q3H Lab 05/18/24 02:15 Ordered HEART Score HEART Score: 3 Medical Decision Narrative: In summary patient is a 38-year-old male who presents to the emergency department for evaluation of chest pain with left arm radiation. Patient is hemodynamically stable with a blood pressure 159/99 heart rate 97 sinus rhythm on the bedside monitor breathing 22 times a minute satting at 97% on room air upon arrival, with a temperature of 99. Physical exam is remarkable for clear breath sounds with no increased work of breathing or adventitious sounds, heart sounds S1-S2 regular rate and rhythm without murmurs gallops or thrills. Abdomen is soft nontender no rebound or guarding or rigidity. Bowel sounds normal active. No dependent edema noted.. Differential diagnosis includes ACS versus PE versus pneumonia versus gastroenteritis etc. Initial workup will be conducted with hematologic labs D-dimer plain film chest x-ray twelve-lead EKG.. Initial interventions include crystalloid bolus Toradol Tylenol GI cocktail. Initial workup reviewed by me and his hematologic labs are significant for a white count of 14.6 with an absolute neutrophil count of 9.1 D-dimer 0.32 troponin of less than 0.01 and NT proBNP of less than 20. Given this has been having chest pain continuously for only an hour and a half the patient was placed in observation status at 2100 hrs. Medical necessity for observational status is serial troponins. The patient was provided serial reevaluations continuous cardiac monitoring and pulse oximetry while awaiting results. Patient handed off to Dr. Pepe at 2200 hrs. before second troponin done. My: I assumed primary responsibility for this patient after signout from RASHEED. Patient stable, mild leukocytosis nonactionable chemistry and negative initial troponin/BNP. Chest x-ray with infiltrate consistent with early pneumonia. Given doxycycline. Prior to delta troponin, care handed off to oncoming physician Maki BLACK: I assumed care of the patient at the time of handoff from the prior provider. On reassessment patient reports symptomatic improvement. On my independent interpretation, negative second troponin. Given this, patient was deemed appropriate for discharge with outpatient management with doxycycline for coverage of pneumonia. I was consulted by the RASHEED, and we discussed the complexity of the problems being addressed. I approved the treatment and management plan for this patient?s care in the Emergency Department, thus performing a substantive portion of the medical decision making. Ray Gambino MD Critical Care <TC Ruano - Last Filed: 05/17/24 21:55> Critical Care Time Critical Care Time: No
--- NOTE | 2024-05-17 20:08 | XR_ITS ---
PROCEDURE INFORMATION: Exam: XR Chest Exam date and time: 05/17/2024 8:08 PM Age: 38 years old Clinical indication: Pain; Left-sided; Additional info: Chest pain TECHNIQUE: Imaging protocol: Radiologic exam of the chest. Views: 2 views. COMPARISON: CR XR CHEST PORTABLE 05/11/2024 7:53 PM FINDINGS: Lungs: Pulmonary vasculature grossly normal. Bandlike alveolar opacities in the posterior left base and lingula the lingula. Favor multifocal subsegmental atelectasis. Infiltrates considered less likely though not excluded. Pleural spaces: No pleural effusion. No pneumothorax. Heart/Mediastinum: Heart size normal. No tracheal/mediastinal shift. Bones/joints: No acute osseous abnormalities are identified. IMPRESSION: Left basilar bandlike alveolar opacities, favor atelectasis, less likely basilar infiltrate.
--- NOTE | 2024-05-17 20:21 | PC.NURSE ---
Pt back from xray
[2024-05-17] MEDS: 0.9 % SODIUM CHLORIDE 1000ML 1,000 ML 999 ML IV (20:24)
[2024-05-17] MEDS: KETOROLAC 30MG/ML VIAL 15 MG IV (20:24)
[2024-05-17] MEDS: ACETAMINOPHEN 1,000MG/100ML VIAL 1000 MG IV (20:24)
[2024-05-17 20:25] LABS: Basophils # 0.1 K/mm3 (0-0.2); Basophils % 0.3 % (0.1-2.0); Eosinophils # 0.3 K/mm3 (0.0-0.4); Eosinophils % 2.3 % (0.1-12.0); Hematocrit 41.5 % (42.0-52.0); Hemoglobin 14.1 g/dL (14.1-18.0); Lymphocytes # 3.8 K/mm3 (0.7-4.5); Lymphocytes % 25.9 % (10-50); Mean Corpuscular Hemoglobin 30.8 pg (27.0-31.2); Mean Corpuscular Volume 90.6 fl (80-94); Mean Platelet Volume 8.9 fl (7.4-10.4); Monocytes # 1.2 K/mm3 (0.1-1.0); Monocytes % 8.3 % (1.7-9.3); Neutrophils # 9.1 K/mm3 (1.8-7.8); Neutrophils % 62.6 % (37.0-80.0); Platelet Count 418 K/mm3 (142-424); Red Blood Count 4.58 M/mm3 (4.60-6.20); Red Cell Distribution Width 12.7 % (11.5-17.5); White Blood Count 14.6 K/mm3 (4.8-10.8)
[2024-05-17 20:29] LABS: Albumin Level 4.6 g/dl (3.5-5.0); Chloride 103 mmol/L (98-107); Potassium 3.9 mmoL/L (3.5-5.1); Sodium 138 mmol/L (136-145)
[2024-05-17 20:31] LABS: Blood Urea Nitrogen 13 mg/dl (9-20); Creatinine Clearance Estimated 203 mL/min (50-200); Estimated Glomerular Filt Rate 85 ml/min (>60); GFR (African American) 102 ML/MIN (>60)
[2024-05-17 20:32] LABS: Alanine Aminotransferase 42 U/L (12-78); Albumin/Globulin Ratio 1.5 (1.1-1.8); Alkaline Phosphatase 56 U/L (38-126); Anion Gap 7.9 mEq/L (5-15); Aspartate Amino Transferase 34 U/L (17-59); Bilirubin,Total 0.4 mg/dl (0.2-1.3); Calcium 9.3 mg/dl (8.4-10.2); Carbon Dioxide 31 mmol/L (22.0-30.0); Globulin 3.1 g/dL (1.3-3.2); Glucose 111 mg/dl (74-100); Total Protein,Serum 7.7 g/dl (6.3-8.2)
[2024-05-17 20:35] LABS: INR 0.86 (0.9-1.1); Prothrombin Time 9.6 seconds (9.2-12.1)
[2024-05-17 20:41] LABS: NT Pro Brain Natriuretic Pep. < 20.0 pg/mL (0-125)
[2024-05-17 20:52] LABS: Troponin I < 0.01 ng/ml (0.00-0.034)
[2024-05-17 20:53] LABS: D-Dimer 0.32 ug/mL (0.0-0.5)
[2024-05-17 21:18] LABS: Procalcitonin 0.049 ng/mL (0.0-2.0)
[2024-05-17] MEDS: DOXYCYCLINE HYCL 100 MG TABLET PO (22:28)
[2024-05-17 23:31] LABS: Troponin I < 0.01 ng/ml (0.00-0.034)
--- NOTE | 2024-05-17 23:31 | PC.NURSE ---
lab contacted regarding 2nd trop result.
--- NOTE | 2024-05-17 23:32 | PC.NURSE ---
provider at the bedside updating pt on POC
== END 2024-05-17 23:38 | disposition home or self-care (01) ==
PROVIDERS: Physician Assistant; Emergency Provider Emergency Medicine
DX: J18.9 Pneumonia, unspecified organism (principal)
CPT/HCPCS: 71046; 80053; 83880; 84145; 84484; 85025; 85378; 85610; 93005; 96361; 96374; 96375; 99285; J0131; J1885; J7030